=== PATIENT | female | born 1940 | race Caucasian/White ===

== ENCOUNTER 2020-08-17 12:03 | Emergency (ER) | payer OTHER ==
[~2020-08-17] VITALS: Ht 154.9 cm; Wt 65.8 kg
[2020-08-17 12:08] VITALS: Ht 154.9 cm; Wt 65.8 kg
[2020-08-17 12:58] LABS: BASOPHIL % 0.4 % (0-2); PLATELET COUNT 237 x10^3mcL (130-400); RED CELL DISTRIBUTION WIDTH 13.1 % (11.5-14.5)
[2020-08-17 12:58] LABS: microscopic required? NO
[2020-08-17 13:00] LABS: UA SPECIFIC GRAVITY 1.015 (1.005-1.035); urine erythrocyte NEGATIVE (NEGATIVE)
[2020-08-17 13:10] LABS: AMPHETAMINE QUAL UR NONE DETECTED (See below)
[2020-08-17 13:19] LABS: CARBON DIOXIDE 29.2 mmol/L (21-32); CHLORIDE SERUM 100 mmol/L (98-107); CREATININE SERUM 1.4 mg/dL (0.6-1.0); GLUCOSE SERUM 112 mg/dL (74-106); POTASSIUM SERUM 3.8 mmol/L (3.5-5.1); SODIUM SERUM 134 mmol/L (136-145)
[2020-08-17 13:24] LABS: ALBUMIN 3.7 g/dL (3.4-5.0); ALKALINE PHOSPHATASE 60 U/L (46-116); ALT/SGPT 21 U/L (14-59); AMYLASE 53 U/L (25-115); AST/SGOT 20 U/L (15-37); BILIRUBIN TOTAL 0.3 mg/dL (0.20-1.00); LIPASE 142 IU/L (73-393); TOTAL PROTEIN, SERUM 7.7 g/dL (6.4-8.2)
[2020-08-17 18:30] VITALS: BP 145/90
== END 2020-08-17 18:30 | disposition home or self-care (01) ==
LOC: ED 12:03
PROVIDERS: Emergency Medicine
DX: R10.32 Left lower quadrant pain (principal); G89.29 Other chronic pain; I10 Essential (primary) hypertension; E78.00 Pure hypercholesterolemia, unspecified; I48.91 Unspecified atrial fibrillation; M54.5 Low back pain; Z88.0 Allergy status to penicillin; Z88.2 Allergy status to sulfonamides; Z88.8 Allergy status to other drugs, medicaments and biological substances
CPT/HCPCS: J1885; Q9967

== ENCOUNTER 2020-10-09 12:26 | Emergency (ER) | payer OTHER ==
[~2020-10-09] VITALS: Ht 149.9 cm; Wt 65.3 kg
[2020-10-09 12:51] VITALS: Ht 149.9 cm; Wt 65.3 kg
[2020-10-09 16:07] LABS: BASOPHIL % 0.3 % (0.2-1.3); PLATELET COUNT 255 x10^3mcL (179-408); RED CELL DISTRIBUTION WIDTH 13.9 % (12.3-17.7)
[2020-10-09 16:18] LABS: CALCIUM 9.7 mg/dL (8.5-10.1); CARBON DIOXIDE 28.1 mmol/L (21-32); CHLORIDE SERUM 101 mmol/L (98-107); CREATININE SERUM 1.2 mg/dL (0.6-1.0); GLUCOSE SERUM 112 mg/dL (74-106); POTASSIUM SERUM 3.8 mmol/L (3.5-5.1); SODIUM SERUM 139 mmol/L (136-145)
[2020-10-09 16:22] LABS: ALBUMIN 3.9 g/dL (3.4-5.0); ALKALINE PHOSPHATASE 70 U/L (46-116); ALT/SGPT 17 U/L (14-59); AST/SGOT 20 U/L (15-37); BILIRUBIN TOTAL 0.3 mg/dL (0.20-1.00); MAGNESIUM 2.2 mg/dL (1.8-2.4); PHOSPHOROUS 3.6 mg/dL (2.5-4.9); TOTAL PROTEIN, SERUM 8.2 g/dL (6.4-8.2)
[2020-10-09 18:05] LABS: microscopic required? YES; urine erythrocyte TRACE (NEGATIVE)
[2020-10-09 19:30] VITALS: BP 131/69
== END 2020-10-09 19:30 | disposition home or self-care (01) ==
LOC: ED 12:26
PROVIDERS: Emergency Medicine
DX: K59.00 Constipation, unspecified (principal); M54.9 Dorsalgia, unspecified
CPT/HCPCS: Q9967